=== PATIENT | female | born 1935 | race Caucasian/White ===

== ENCOUNTER 2019-05-28 17:26 | Emergency (ER) | payer MEDICARE, OTHER ==
[2019-05-28 17:31] VITALS: BP 175/60; PULSE 54
--- NOTE | 2019-05-28 17:37 | EDM.PDOC ---
ED HPI GENERAL MEDICAL PROBLEM - General Chief Complaint: Upper Extremity Injury/Pain Stated Complaint: left wrist pain Time Seen by Provider: 05/28/19 17:30 Source of Information: Reports: Patient, Family (Daughter), Old Records ([facility] EMR. No paper hospital chart available.) History Limitations: Reports: No Limitations - History of Present Illness INITIAL COMMENTS - FREE TEXT/NARRATIVE: The patient was brought to the emergency room via private automobile by her daughter for evaluation of 10/10 left wrist pain after she slipped on the ice in her backyard landing on her sidewalk at about 16:50 hours this afternoon. The patient did take to OTC Aleve at that time with no improvement of her symptoms. Ice packs were also applied with no improvement in her symptoms. She is right-handed and has not injured this wrist in the past. She denies any head injury, loss of consciousness, neck/back pain, neurological deficits, or other complaints or injuries. The patient denies any chest pain/pressure, heart flutter, dizziness, orthostasis, orthopnea, diaphoresis, paresthesias, recent decreased exercise tolerance, or any other anginal-type symptoms. No recent history of abdominal pain, heartburn, nausea, diarrhea, melena, gross hematochezia, or any food intolerance, including fatty foods, etc.. The patient also denies any recent fever, cough, wheezing, dyspnea, etc.. Onset: Today, Sudden Onset Date: 05/28/19 Onset Time: 16:50 Duration: Constant Location: Reports: Upper Extremity, Left. 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 Cardiovascular History: Reports: Hypertension Gastrointestinal History: Reports: GERD, Hiatal Hernia Musculoskeletal History: Reports: Arthritis, Back Pain, Chronic, Neck Pain, Chronic, Osteoarthritis, Osteoporosis, Other (See Below) Other Musculoskeletal History: Kyphosis. Endocrine/Metabolic History: Reports: Osteopenia, Osteoporosis - Past Imaging History Past Imaging History: Reports: CAT Scan (CT of the sinuses on 05/12/16), DEXA Scan (12/31/16 and 04/26/13), Upper GI X-Ray/Series (05/17/14) Social & Family History - Tobacco Use Smoking Status *Q: Never Smoker Tobacco Use Within Last Twelve Months: No Used Tobacco, but Quit: No Smoking Cessation Information Provided To Patient: No Second Hand Smoke Exposure: No Second Hand Smoke Education Provided: No Review of Systems - Review of Systems Review Of Systems: Comprehensive ROS is negative, except as noted in HPI. ED EXAM, GENERAL - Physical Exam Exam: See Below Exam Limited By: No Limitations General Appearance: Alert, WD/WN, No Apparent Distress Head: Atraumatic, Normocephalic. No: Facial Swelling, Facial Tenderness, Sinus Tenderness Neck: Normal Inspection, Supple, Non-Tender, Full Range of Motion. No: Lymphadenopathy (L), Lymphadenopathy (R), Thyromegaly Respiratory/Chest: No Respiratory Distress, Lungs Clear, Normal Breath Sounds, No Accessory Muscle Use, Chest Non-Tender. No: Pleural Rub, Retractions Cardiovascular: Normal Peripheral Pulses, Regular Rate, Rhythm, No Edema, No Gallop, No JVD, No Murmur, No Rub. No: Gallop/S3, Gallop/S4, Friction Rub Peripheral Pulses: 2+: Radial (L), Radial (R) GI/Abdominal: Normal Bowel Sounds, Soft, Non-Tender, No Organomegaly, No Distention, No Abnormal Bruit, No Mass, Pelvis Stable. No: Guarding (Female) Exam: Deferred Rectal (Female) Exam: Deferred Back Exam: Full Range of Motion, Other (Moderate kyphosis). No: CVA Tenderness (L), CVA Tenderness (R), Muscle Spasm, Paraspinal Tenderness, Vertebral Tenderness Extremities: No Pedal Edema, Normal Capillary Refill, Joint Swelling (Moderate swelling of the left wrist including obvious deformity ), Arm Pain (Moderate to severe palpation pain over the left wrist with no snuffbox tenderness), Limited Range of Motion (Left wrist secondary to fracture). No: Pedal Edema Neurological: Alert, Oriented, CN II-XII Intact, Normal Cognition, Normal Gait, Normal Reflexes, No Motor/Sensory Deficits Psychiatric: Normal Affect, Normal Mood Skin Exam: Warm, Dry, Intact, Normal Color, No Rash, Ecchymosis (Mild over left wrist). No: Diaphoretic, Wound/Incision Lymphatic: No Adenopathy ED TRAUMA EXTREMITY PROCEDURES - Joint Reduction Left Wrist Sedation: Hematoma/Fracture Block Local Anesthesia - Lidocaine (Xylocaine): 1% Plain Local Anesthetic Volume: Other (10 cc) Pre-Procedure NV Status: Normal Post-Procedure NV Status: Normal Technique: Traction/Counter Traction Number of Attempts: 2 Post-Reduction Imaging: Acceptably Reduced, Fracture Seen Joint Reduction Complications: No - Splinting Left Upper Extremity Splint Site: Left wrist Pre-Procedure NV Status: Normal Post-Procedure NV Status: Normal Splint Material: Other (12" x 5" added fiberglass splint material cut to fit and secured with a 2 inch and a 4 inch Marko wrap) Splint Design: Other (Short arm palmar) Applied & Form Fitted By: Provider Provider Post-Splint Application NV Check: NV Status Normal, Good Position Complications: No Course - Vital Signs Last Recorded V/S: Last Vital Signs Temp 36.4 C 05/28/19 17:29 Pulse 54 L 05/28/19 17:29 Resp 16 05/28/19 17:29 BP 175/60 H 05/28/19 17:29 Pulse Ox 99 05/28/19 17:29 Vital Signs - 24 hr 05/28/19 17:29 Temperature [ 36.4 C Temporal] Pulse, 54 L Peripheral [ Pulse Oximetry] Respiratory 16 Rate Blood Pressure 175/60 H [Right Arm] O2 Sat by Pulse 99 Oximetry - Orders/Labs/Meds Orders: Active Orders 24 hr Category Date Time Status Wrist Comp Min 3V Lt [CR] Stat Exams 05/28/19 17:37 Taken Wrist Comp Min 3V Lt [CR] Stat Exams 05/28/19 17:55 Taken Obtain Past Medical Record [OM.PC] Routine Oth 05/28/19 17:37 Active Labs: None Meds: Medications Discontinued Medications Generic Name Dose Route Start Last Admin Trade Name Suly PRN Reason Stop Dose Admin Hydromorphone HCl 2 mg 05/28/19 18:43 05/28/19 19:15 Dilaudid PO 05/28/19 18:44 2 mg ONETIME ONE Administration Lidocaine HCl 5 ml 05/28/19 17:37 05/28/19 17:57 Xylocaine-Mpf 1% INJECT 05/28/19 17:38 5 ml ONETIME ONE Administration Lidocaine HCl 5 ml 05/28/19 17:37 05/28/19 17:58 Xylocaine-Mpf 1% INJECT 05/28/19 17:38 5 ml ONETIME ONE Administration - Radiology Interpretation Free Text/Narrative:: X-rays of the left wrist, 3 views, shows evidence of a moderately elevated and angulated comminuted fracture of the distal radius X-rays of the left wrist, complete-postreduction, shows mildly suboptimal however adequate reduction of the above comminuted fracture Departure - Departure Time of Disposition: 19:10 Disposition: Home, Self-Care 01 Condition: Good Clinical Impression: Peptic reflux disease Colles' fracture of left radius Qualifiers: Encounter type: initial encounter Fracture type: closed Qualified Code(s): S52.532A - Colles' fracture of left radius, initial encounter for closed fracture Osteoarthritis Qualifiers: Osteoarthritis location: multiple joints Osteoarthritis type: primary Qualified Code(s): M15.0 - Primary generalized (osteo)arthritis Hypertension Qualifiers: Hypertension type: essential hypertension Qualified Code(s): I10 - Essential ( primary) hypertension - Discharge Information *PRESCRIPTION DRUG MONITORING PROGRAM REVIEWED*: Not Applicable *COPY OF PRESCRIPTION DRUG MONITORING REPORT IN PATIENT SANA: Not Applicable Instructions: Cast or Splint Care, Adult, [id number], Wrist Fracture Treated With Immobilization, [id number] Referrals: Deanna Cabral PA-C [Primary Care Provider] - Forms: ED Department Discharge Additional Instructions: 1. Followup with an orthopedic surgeon at [facility] (telephone #[phone]) in 7 days as directed for reevaluation and possible scheduling of surgery versus placement of a short arm cast. Bring these discharge instructions with you to that visit. 2. Tylenol 650 mg by mouth every 4 hours and/or OTC ibuprofen 2-3 tabs by mouth every 6 hours with food as directed./needed. You may stagger these medications for 48-72 hours only, which essentially means that you are receiving a pain medication about every 2 hours. 3. Ice packs and arm elevation as discussed 4. Wear short arm splint at all times until otherwise directed 5. Limited use of your left wrist and hand, including maximum 10 pound lifting restriction 6. Sedation precautions with no driving, etc. for 18 hours because of emergency room medications. 7. Immediately after this visit verify that your cellular telephone's voicemail has been activated and is empty. Also verify that your home telephone 's answering machine is operating properly and has space to receive messages. Note that it is sometimes necessary for us to be able to contact you at a later date to discuss your medical care. 8. Please remember that we are ALWAYS here for you and want to answer any questions you may have. Feel free to call the hospital any time and we call you back NEMO. Sepsis Event Note - Evaluation Sepsis Screening Result: No Definite Risk - Focused Exam Vital Signs: Vital Signs Temp Pulse Resp BP Pulse Ox 05/28/19 17:29 36.4 C 54 L 16 175/60 H 99 Date Exam was Performed: 05/29/19 Time Exam was Performed: 01:55 - Problem List & Annotations (1) Colles' fracture of left radius SNOMED Code(s): 652853613 Code(s): S52.532A - COLLES' FRACTURE OF LEFT RADIUS, INIT FOR CLOS FX Status: Acute Priority: High Onset Date: 05/28/19 Annotation/Comment:: Overall adequate reduction by clinical exam despite suboptimal postreduction x- rays as above. Activity restrictions, splint care, etc. were extensively discussed. Secondary to complexity of patient's fracture patient will follow-up with an orthopedic surgeon at [facility] within the next week for further evaluation and treatment as per discharge instructions. Qualifiers: Encounter type: initial encounter Fracture type: closed Qualified Code(s) : S52.532A - Colles' fracture of left radius, initial encounter for closed fracture (2) Hypertension SNOMED Code(s): 23200676 Code(s): I10 - ESSENTIAL (PRIMARY) HYPERTENSION Status: Acute Qualifiers: Hypertension type: essential hypertension Qualified Code(s): I10 - Essential (primary) hypertension (3) Osteoarthritis SNOMED Code(s): 819990903 Code(s): M19.90 - UNSPECIFIED OSTEOARTHRITIS, UNSPECIFIED SITE Status: Chronic Priority: Medium Annotation/Comment:: Otherwise Stable by history with no evidence of other injuries. Qualifiers: Osteoarthritis location: multiple joints Osteoarthritis type: primary Qualified Code(s): M15.0 - Primary generalized (osteo)arthritis (4) Peptic reflux disease SNOMED Code(s): 493072746 Code(s): K21.9 - GASTRO-ESOPHAGEAL REFLUX DISEASE WITHOUT ESOPHAGITIS Status: Chronic Priority: Medium Annotation/Comment:: Stable by history - Problem List Review Problem List Initiated/Reviewed/Updated: Yes - My Orders Last 24 Hours: My Active Orders 05/28/19 17:37 Wrist Comp Min 3V Lt [CR] Stat Obtain Past Medical Record [OM.PC] Routine 05/28/19 17:55 Wrist Comp Min 3V Lt [CR] Stat - Assessment/Plan Last 24 Hours: My Active Orders 05/28/19 17:37 Wrist Comp Min 3V Lt [CR] Stat Obtain Past Medical Record [OM.PC] Routine 05/28/19 17:55 Wrist Comp Min 3V Lt [CR] Stat Assessment:: As above Plan: As above. Extensive precautions were given to the patient and her family, who are in agreement with the treatment plan. See Patient Instructions for further treatment and plan.
[2019-05-28] MEDS ORDERED: HYDROmorphone 2 MG Tab PO ONE (18:43)
== END 2019-05-28 19:10 | disposition home or self-care (01) ==
LOC: LL.ED 17:26
DX: S52.532A Colles' fracture of left radius, initial encounter for closed fracture (principal); S52.612A Displaced fracture of left ulna styloid process, initial encounter for closed fracture; M15.0 Primary generalized (osteo)arthritis; K21.9 Gastro-esophageal reflux disease without esophagitis; I10 Essential (primary) hypertension; Z88.0 Allergy status to penicillin; Z79.899 Other long term (current) drug therapy; W00.0XXA Fall on same level due to ice and snow, initial encounter
CPT/HCPCS: 25605; 73110; 99283; A9270; J2001

== ENCOUNTER 2024-11-15 18:28 | Emergency (ER) | payer MEDICARE, OTHER ==
[2024-11-15] MEDS ORDERED: Naloxone 0.4 MG/ML SDV IVPUSH PRN (18:56)
[2024-11-15 19:13] LABS: BASOPHILS ABSOLUTE AUTO 0.04 K/uL (0.00-0.20); BASOPHILS PERCENT AUTO 0.5 % (0.0-2.0); EOSINOPHILS ABSOLUTE AUTO 0.05 K/uL (0.00-0.50); EOSINOPHILS PERCENT AUTO 0.7 % (0.0-5.0); IMMATURE GRAN ABSOLUTE AUTO 0.05 10^3/uL (0.00-0.04); IMMATURE GRAN PERCENT AUTO 0.7 % (0.0-0.4); LYMPHOCYTES ABSOLUTE AUTO 1.07 K/uL (0.50-3.50); LYMPHOCYTES PERCENT AUTO 14.1 % (10.0-50.0); MONOCYTES ABSOLUTE AUTO 0.54 K/uL (0.00-1.00); MONOCYTES PERCENT AUTO 7.1 % (2.0-14.0); NEUTROPHILS ABSOLUTE AUTO 5.82 K/uL (1.40-7.00); NEUTROPHILS PERCENT AUTO 76.9 % (45.0-80.0); PLATELET COUNT,PLT 287 K/uL (150-350); RED BLOOD CELL COUNT 3.92 M/uL (3.77-5.09); RED CELL DISTRIBUTION WIDTH 14.4 % (11.2-14.1); WHITE BLOOD CELL COUNT,WBC 7.6 K/uL (4.0-10.2)
[2024-11-15 19:29] LABS: ALANINE AMINOTRANSFERASE,ALT 0.0 U/L (12-78); ASPARTATE AMNIOTRANSFERASE,AST 15.0 U/L (15-37); BILIRUBIN TOTAL 0.4 mg/dL (0.2-1.0); BLOOD UREA NITROGEN,BUN 13.0 mg/dL (7-18); CARBON DIOXIDE,CO2 27.2 mmol/L (21.0-32.0); CHLORIDE,CL 104.0 mmol/L (98-107); CREATININE 0.85 mg/dL (0.51-1.17); EST CRCL DRUG DOSING (CG) 37.84 mL/min; GLUCOSE RANDOM 178.0 mg/dL (70-99); POTASSIUM,K 3.6 mmol/L (3.5-5.1); PROTEIN TOTAL,TP 6.5 g/dL (6.4-8.2); SODIUM,NA 139.0 mmol/L (136-145)
[2024-11-15 19:34] LABS: ESTIMATED GFR 66.0 mL/min (>=60)
== END 2024-11-15 20:01 ==
LOC: LL.ED 18:28
DX: R51.9 Headache, unspecified (principal); M53.3 Sacrococcygeal disorders, not elsewhere classified; I10 Essential (primary) hypertension; Z88.0 Allergy status to penicillin; Z88.8 Allergy status to other drugs, medicaments and biological substances; Z79.899 Other long term (current) drug therapy; W19.XXXA Unspecified fall, initial encounter
CPT/HCPCS: 36415; 72220; 80053; 83735; 85025; 93005; 96374; 99285-25; J1171

== ENCOUNTER 2025-02-26 14:55 | Emergency (ER) | payer MEDICARE, OTHER ==
[2025-02-26 15:30] LABS: BASOPHILS ABSOLUTE AUTO 0.05 K/uL (0.00-0.20); BASOPHILS PERCENT AUTO 0.8 % (0.0-2.0); EOSINOPHILS ABSOLUTE AUTO 0.06 K/uL (0.00-0.50); EOSINOPHILS PERCENT AUTO 1.0 % (0.0-5.0); IMMATURE GRAN ABSOLUTE AUTO 0.02 10^3/uL (0.00-0.04); IMMATURE GRAN PERCENT AUTO 0.3 % (0.0-0.4); LYMPHOCYTES ABSOLUTE AUTO 1.54 K/uL (0.50-3.50); LYMPHOCYTES PERCENT AUTO 25.8 % (10.0-50.0); MONOCYTES ABSOLUTE AUTO 0.85 K/uL (0.00-1.00); MONOCYTES PERCENT AUTO 14.3 % (2.0-14.0); NEUTROPHILS ABSOLUTE AUTO 3.44 K/uL (1.40-7.00); NEUTROPHILS PERCENT AUTO 57.8 % (45.0-80.0); PLATELET COUNT,PLT 228 K/uL (150-350); RED BLOOD CELL COUNT 3.66 M/uL (3.77-5.09); RED CELL DISTRIBUTION WIDTH 12.4 % (11.2-14.1); WHITE BLOOD CELL COUNT,WBC 6.0 K/uL (4.0-10.2)
[2025-02-26 16:06] LABS: ALANINE AMINOTRANSFERASE,ALT 20 U/L (12-78); ASPARTATE AMNIOTRANSFERASE,AST 16 U/L (15-37); BILIRUBIN TOTAL 0.5 mg/dL (0.2-1.0); BLOOD UREA NITROGEN,BUN 13 mg/dL (7-18); CARBON DIOXIDE,CO2 26.6 mmol/L (21.0-32.0); CHLORIDE,CL 102 mmol/L (98-107); CREATININE 0.83 mg/dL (0.51-1.17); GLUCOSE RANDOM 127 mg/dL (70-99); POTASSIUM,K 3.5 mmol/L (3.5-5.1); PROTEIN TOTAL,TP 6.6 g/dL (6.4-8.2); SODIUM,NA 136 mmol/L (136-145)
[2025-02-26 16:13] LABS: ESTIMATED GFR 68 mL/min (>=60)
[2025-02-26] MEDS: Take Home: traMADol 50 MG, 4 Tab Pack PO ONE (17:39)
== END 2025-02-26 17:45 | disposition home or self-care (01) ==
LOC: LL.ED 14:55
DX: M54.50 Low back pain, unspecified (principal); R29.6 Repeated falls; I10 Essential (primary) hypertension; M19.90 Unspecified osteoarthritis, unspecified site; Z79.899 Other long term (current) drug therapy; Z88.0 Allergy status to penicillin; Z88.8 Allergy status to other drugs, medicaments and biological substances; W19.XXXA Unspecified fall, initial encounter
CPT/HCPCS: 36415; 72131; 72192; 80053; 83735; 85025; 99284; A9270